=== PATIENT | female | born 1950 | race Caucasian/White ===

== ENCOUNTER 2020-04-13 11:11 | Emergency (ER) | payer OTHER ==
[~2020-04-13] VITALS: Ht 157.5 cm; Wt 56.7 kg
[2020-04-13] MEDS ORDERED: KETO10TA2 PO (15:31)
[2020-04-13] MEDS ORDERED: NORFLEX100MG PO (15:31)
== END 2020-04-13 15:43 | disposition home or self-care (01) ==
LOC: ER 11:11
DX: S20.213A Contusion of bilateral front wall of thorax, initial encounter (principal); S30.1XXA Contusion of abdominal wall, initial encounter; R10.31 Right lower quadrant pain; R10.32 Left lower quadrant pain; M54.2 Cervicalgia; V49.88XA Car occupant (driver) (passenger) injured in other specified transport accidents, initial encounter; W22.19XA Striking against or struck by other automobile airbag, initial encounter; Y93.89 Activity, other specified; Y92.488 Other paved roadways as the place of occurrence of the external cause; Y99.8 Other external cause status